=== PATIENT | female | born 1985 | race Two or more races ===

== ENCOUNTER 2024-11-03 11:32 | Day surgery (SDC) | payer OTHER ==
[2024-11-03 12:07] VITALS: BMI 32.9
[2024-11-03 13:17] LABS: Glucose, Urine (Dipstick) Normal (Negative); Leukocyte 25 (Negative); Protein, Urine (Dipstick) 15 mg/dl (Neg-Trace); Specific Gravity, Urine 1.015 (1.005-1.030)
[2024-11-03 13:28] LABS: Bacteria/HPF Rare-Few HPF (None Seen); CAUTI Indications for Culture Pregnancy; RBC/HPF 0-3 HPF (0-3); WBC/HPF 0-3 HPF (0-3)
[2024-11-03 13:30] LABS: Urine Culture Reflex Yes Yes
== END 2024-11-03 15:58 | disposition home or self-care (01) ==
LOC: CSHLD/OP 11:32
PROVIDERS: ATTEND Family Medicine
DX: O47.03 False labor before 37 completed weeks of gestation, third trimester (principal); O09.523 Supervision of elderly multigravida, third trimester; O26.853 Spotting complicating pregnancy, third trimester; O98.813 Other maternal infectious and parasitic diseases complicating pregnancy, third trimester; B37.9 Candidiasis, unspecified; O23.593 Infection of other part of genital tract in pregnancy, third trimester; B96.89 Other specified bacterial agents as the cause of diseases classified elsewhere; Z3A.32 32 weeks gestation of pregnancy; Z79.899 Other long term (current) drug therapy
CPT/HCPCS: 51701; 76817; 81001; 87086; 87480; 87510; 87660; 96360; 96375; 99284

== ENCOUNTER 2024-12-23 05:27 | Inpatient (IN) | payer OTHER ==
[2024-12-23 05:58] VITALS: BMI 33.3
[2024-12-23] MEDS: Penicillin G Potassium 5 MILL.UNITS VIAL ONE (06:20)
[2024-12-23] MEDS ORDERED: Ibuprofen 800 MG TAB PO PRN (06:26)
[2024-12-23] MEDS ORDERED: Tranexamic Acid 1,000 MG/10 ML VIAL IVP PRN (06:26)
[2024-12-23] MEDS ORDERED: Methylergonovine 0.2 MG/ML VIAL IM PRN ×2 (06:26→10:19)
[2024-12-23] MEDS ORDERED: Acetaminophen 500 MG TAB PO PRN (06:26)
[2024-12-23] MEDS ORDERED: Diphenoxylate HCl/Atropine Tablet PO PRN (06:26)
[2024-12-23] MEDS ORDERED: Carboprost 250 MCG/ML AMP IM PRN (06:26)
[2024-12-23] MEDS ORDERED: Ondansetron PF 4 MG/2 ML Vial IVP PRN ×2 (06:26→10:19)
[2024-12-23] MEDS ORDERED: hydrALAZINE 20 MG/ML VIAL SLOW IVP PRN ×2 (06:26→10:19)
[2024-12-23] MEDS ORDERED: Penicillin G Potassium 5 MILL.UNITS in Sodium Chloride 0.9% 100 ML IVPB SCH (06:30)
[2024-12-23] MEDS ORDERED: Oxytocin 30 units/NS 500 ML 500 ML IV SCH ×2 (06:30→10:19)
[2024-12-23 06:56] LABS: Hematocrit 41.1 % (34.9-44.5); Hemoglobin 14.1 g/dL (12.0-15.5); Mean Corpuscular Hemoglobin 29.3 pg (27.0-33.0); Mean Corpuscular Volume 85.4 fL (81.6-98.3); Platelet Count 167 10x3/uL (150-450); Red Blood Cell (RBC) Count 4.81 10x6/uL (3.90-5.03); White Blood Cell (WBC) Count 8.77 10x3/uL (3.5-10.5)
[2024-12-23 07:26] LABS: Syphilis Antibody Index 0.07 S/CO (<1.00 Non-Reactive)
[2024-12-23] MEDS: Oxytocin 30 units/NS 500 ML 500 ML IV SCH (07:26)
[2024-12-23 07:27] LABS: Hep B Surf Ag - L&D Non-Reactive S/CO (NonReactive)
[2024-12-23] MEDS: Lidocaine 1% (PF) 30 ML VIAL SC PRN (07:49)
[2024-12-23] MEDS ORDERED: Preparation H Ointment 28 GM TUBE PR PRN (10:19)
[2024-12-23] MEDS ORDERED: Milk Of Magnesia 30 ML UDCUP PO PRN (10:19)
[2024-12-23] MEDS ORDERED: Lanolin Ointment 7 GM TUBE TOP PRN (10:19)
[2024-12-23] MEDS ORDERED: Bisacodyl 10 MG SUPP PR PRN (10:19)
[2024-12-23] MEDS ORDERED: Penicillin G 2.5 MILL.units 2.5 MILL.UNITS in Premix 1 BAG IVPB SCH (10:30)
[2024-12-23] MEDS: Boostrix 0.5 ML (Tdap) VIAL (>/=7 yrs of age) IM ONE (10:59)
[2024-12-23] MEDS: Ibuprofen 800 MG TAB PO SCH (13:46)
[2024-12-23] MEDS: Ferrous Sulfate 325 MG TAB PO SCH (16:08)
[2024-12-24] MEDS: Fleet Saline Enema 133 ML BOT PR SCH ×2 (09:33→10:02)
[2024-12-25 08:37] VITALS: BP 118/57; TEMP 98.6
== END 2024-12-25 13:15 | disposition home or self-care (01) | DRG 807 ==
LOC: CSHLD/OP 05:27 → CSHLD 06:20 → CSHPP 10:30
PROVIDERS: ADMIT Family Medicine; ATTEND Family Medicine
PROC: 10E0XZZ Delivery of Products of Conception, External Approach (ICD-10-PCS; principal; 2024-12-23)
PROC: 0UQMXZZ Repair Vulva, External Approach (ICD-10-PCS; 2024-12-23)
PROC: 10907ZC Drainage of Amniotic Fluid, Therapeutic from Products of Conception, Via Natural or Artificial Opening (ICD-10-PCS; 2024-12-23)
PROC: 3E03329 Introduction of Other Anti-infective into Peripheral Vein, Percutaneous Approach (ICD-10-PCS; 2024-12-23)
PROC: 3E033VJ Introduction of Other Hormone into Peripheral Vein, Percutaneous Approach (ICD-10-PCS; 2024-12-23)
DX: O99.824 Streptococcus B carrier state complicating childbirth (principal); Z37.0 Single live birth; Z3A.39 39 weeks gestation of pregnancy; Z98.84 Bariatric surgery status; O70.0 First degree perineal laceration during delivery
CPT/HCPCS: 51702; 85027; 86780; 86850; 86900; 86901; 87340; 99285; J2003; J2540; J2590